=== PATIENT | male | born 1995 | race African-American/Black ===

== ENCOUNTER → 2018-06-26 | Outpatient (CLI) | payer OTHER ==
[2018-06-26 12:44] LABS: HCT 44.7 % (39.0-53.0); HGB 14.6 gm/dL (13.0-17.5); MCH 28.5 pg (25.0-35.0); MCHC 32.6 g/dL (31.0-37.0); MCV 87.3 fL (80.0-100.0); Mean Platelet Volume 7.1; Platelet Count 245 k/uL (150-450); RBC 5.12 m/uL (4.30-5.90); RDW 12.7 % (11.5-15.5); WBC 5.9 k/uL (3.8-10.6)
[2018-06-26 19:37] LABS: Albumin 4.1 g/dL (3.80-4.90); Albumin/Globulin Ratio 3.42 (1.20-2.10); Calcium 9.3 mg/dL (8.7-10.3); Globulin 1.2 g/dL (2.1-3.7); Potassium 3.9 mmol/L (3.5-5.5); Total Bilirubin 0.3 mg/dL (0.2-1.2); Total Protein 5.3 g/dL (6.2-8.2)
== END | disposition home or self-care (01) ==
LOC: LABWHC1 12:03
PROVIDERS: ATTEND Internal Medicine
DX: R41.3 Other amnesia (principal)
CPT/HCPCS: 36415; 80053; 82607; 84439; 84443; 85027

== ENCOUNTER → 2018-07-12 | Outpatient (CLI) | payer OTHER ==
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
== END | disposition home or self-care (01) ==
LOC: RADMRIMAIN 19:46
PROVIDERS: ATTEND Internal Medicine
DX: M51.35 Other intervertebral disc degeneration, thoracolumbar region (principal); M51.24 Other intervertebral disc displacement, thoracic region; M43.8X4 Other specified deforming dorsopathies, thoracic region; R41.3 Other amnesia
CPT/HCPCS: 70551; 72146

== ENCOUNTER 2019-05-17 17:44 | Emergency (ER) | payer OTHER ==
[2019-05-17 17:50] VITALS: TEMP 98.6
--- NOTE | 2019-05-17 18:09 | ED ---
General Adult HPI - General Chief complaint: Psychiatric Symptoms Stated complaint: Mental health Time Seen by Provider: 05/17/19 17:54 Source: patient, police Mode of arrival: ambulatory Limitations: no limitations - History of Present Illness Initial comments: Dictation was produced using [employer] dictation software. please excuse any grammatical, word or spelling errors. Chief Complaint: 24-year-old male brought in by law enforcement for suicidal behavior. History of Present Illness: Patient is a 24-year-old male. His run by law enforcement for suicidal behavior. Patient called 911 threatening them that he will jump off the river. He was seen approximately 20 feet from the site where he was threatening to jump off. Patient denies any homicidal ideation. Denies any medical history. No medical issues at this time. Denies any pain or shortness of breath. Patient states he didn't suicidal the past. The ROS documented in this emergency department record has been reviewed and confirmed by me. Those systems with pertinent positive or negative responses have been documented in the HPI. All other systems are other negative and/or noncontributory. PHYSICAL EXAM: General Impression: Alert and oriented x3, not in acute distress HEENT: Normocephalic atraumatic, extra-ocular movements intact, pupils equal and reactive to light bilaterally, mucous membranes moist. Cardiovascular: Heart regular rate and rhythm, S1&S2 audible, no murmurs, rubs or gallops Chest: Lungs clear to auscultation bilaterally, no rhonchi, no wheeze, no rales Abdomen: Bowel sounds present, abdomen soft, non-tender, non-distended, no organomegaly Musculoskeletal: Pulses present and equal in all extremities, no peripheral otilia ma Motor: no focal deficits noted Neurological: CN II-XII grossly intact, no focal motor or sensory deficits noted Skin: Intact with no visualized rashes Psych: Tangential speech, flat affect ED course: 24-year-old male with suicidal behavior. Signs upon arrival are within acceptable limits. Physical examination is benign. Patient displaying psychotic symptoms. Patient medically cleared for EPS evaluation. - Related Data Home Medications Medication Instructions Recorded Confirmed No Known Home Medications 10/27/14 05/17/19 Allergies Allergy/AdvReac Type Severity Reaction Status Date / Time No Known Allergies Allergy Verified 05/17/19 20:45 Review of Systems ROS Statement: Those systems with pertinent positive or pertinent negative responses have been documented in the HPI. ROS Other: All systems not noted in ROS Statement are negative. Past Medical History Past Medical History: Asthma Additional Past Medical History / Comment(s): BACK PAIN, MIGRAINE, ADD, D EPRESSION, PERSONALITY DISORDER NOS, ANXIETY, History of Any Multi-Drug Resistant Organisms: None Reported Past Surgical History: No Surgical Hx Reported Past Psychological History: ADD/ADHD, Anxiety, Depression, PTSD Smoking Status: Current every day smoker Past Alcohol Use History: None Reported Past Drug Use History: Marijuana General Exam Limitations: no limitations Course Vital Signs 05/17/19 17:47 Temperature 98.6 F Pulse Rate 62 Respiratory 18 Rate Blood Pressure 121/75 O2 Sat by Pulse 98 Oximetry Medical Decision Making - Lab Data Result diagrams: 05/17/19 20:40 05/17/19 20:40 Lab Results 05/17/19 05/17/19 05/17/19 Range/Units 20:40 20:40 20:40 WBC 11.8 H (3.8-10.6) k/uL RBC 4.58 (4.30-5.90) m/uL Hgb 13.3 (13.0-17.5) gm/dL Hct 39.1 (39.0-53.0) % MCV 85.5 (80.0-100.0) fL MCH 29.1 (25.0-35.0) pg MCHC 34.1 (31.0-37.0) g/dL RDW 12.4 (11.5-15.5) % Plt Count 239 (150-450) k/uL Sodium 141 (137-145) mmol/L Potassium 3.6 (3.5-5.1) mmol/L Chloride 107 (98-107) mmol/L Carbon Dioxide 25 (22-30) mmol/L Anion Gap 9 mmol/L BUN 7 L (9-20) mg/dL Creatinine 0.84 (0.66-1.25) mg/dL Est GFR (CKD-EPI)AfAm >90 (>60 ml/min/1.73 sqM) Est GFR (CKD-EPI)NonAf >90 (>60 ml/min/1.73 sqM) Glucose 103 H (74-99) mg/dL Calcium 9.5 (8.4-10.2) mg/dL Total Bilirubin 0.5 (0.2-1.3) mg/dL AST 35 (17-59) U/L ALT 25 (21-72) U/L Alkaline Phosphatase 40 (38-126) U/L Total Protein 6.0 L (6.3-8.2) g/dL Albumin 3.9 (3.5-5.0) g/dL Urine Color Yellow Urine Appearance Cloudy (Clear) Urine pH 6.0 (5.0-8.0) Ur Specific [place] 1.024 (1.001-1.035) Urine Protein 1+ H (Negative) Urine Glucose (UA) Negative (Negative) Urine Ketones Negative (Negative) Urine Blood Negative (Negative) Urine Nitrite Negative (Negative) Urine Bilirubin Negative (Negative) Urine Urobilinogen <2.0 (<2.0) mg/dL Ur Leukocyte Esterase Negative (Negative) Urine WBC 2 (0-5) /hpf Ur Squamous Epith Cells <1 (0-4) /hpf Urine Bacteria Rare H (None) /hpf Hyaline Casts 15 H (0-2) /lpf Urine Mucus Many H (None) /hpf Urine Opiates Screen (NotDetected) Ur Oxycodone Screen (NotDetected) Urine Methadone Screen (NotDetected) Ur Propoxyphene Screen (NotDetected) Ur Barbiturates Screen (NotDetected) U Tricyclic Antidepress (NotDetected) Ur Phencyclidine Scrn (NotDetected) Ur Amphetamines Screen (NotDetected) U Methamphetamines Scrn (NotDetected) U Benzodiazepines Scrn (NotDetected) Urine Cocaine Screen (NotDetected) U Marijuana (THC) Screen (NotDetected) 05/17/19 Range/Units 20:40 WBC (3.8-10.6) k/uL RBC (4.30-5.90) m/uL Hgb (13.0-17.5) gm/dL Hct (39.0-53.0) % MCV (80.0-100.0) fL MCH (25.0-35.0) pg MCHC (31.0-37.0) g/dL RDW (11.5-15.5) % Plt Count (150-450) k/uL Sodium (137-145) mmol/L Potassium (3.5-5.1) mmol/L Chloride (98-107) mmol/L Carbon Dioxide (22-30) mmol/L Anion Gap mmol/L BUN (9-20) mg/dL Creatinine (0.66-1.25) mg/dL Est GFR (CKD-EPI)AfAm (>60 ml/min/1.73 sqM) Est GFR (CKD-EPI)NonAf (>60 ml/min/1.73 sqM) Glucose (74-99) mg/dL Calcium (8.4-10.2) mg/dL Total Bilirubin (0.2-1.3) mg/dL AST (17-59) U/L ALT (21-72) U/L Alkaline Phosphatase (38-126) U/L Total Protein (6.3-8.2) g/dL Albumin (3.5-5.0) g/dL Urine Color Urine Appearance (Clear) Urine pH (5.0-8.0) Ur Specific [place] (1.001-1.035) Urine Protein (Negative) Urine Glucose (UA) (Negative) Urine Ketones (Negative) Urine Blood (Negative) Urine Nitrite (Negative) Urine Bilirubin (Negative) Urine Urobilinogen (<2.0) mg/dL Ur Leukocyte Esterase (Negative) Urine WBC (0-5) /hpf Ur Squamous Epith Cells (0-4) /hpf Urine Bacteria (None) /hpf Hyaline Casts (0-2) /lpf Urine Mucus (None) /hpf Urine Opiates Screen Not Detected (NotDetected) Ur Oxycodone Screen Not Detected (NotDetected) Urine Methadone Screen Not Detected (NotDetected) Ur Propoxyphene Screen Not Detected (NotDetected) Ur Barbiturates Screen Not Detected (NotDetected) U Tricyclic Antidepress Not Detected (NotDetected) Ur Phencyclidine Scrn Not Detected (NotDetected) Ur Amphetamines Screen Not Detected (NotDetected) U Methamphetamines Scrn Not Detected (NotDetected) U Benzodiazepines Scrn Not Detected (NotDetected) Urine Cocaine Screen Not Detected (NotDetected) U Marijuana (THC) Screen Detected H (NotDetected) Disposition Clinical Impression: Suicidal ideation Disposition: TRANSFER TO PSYCH HOSP/UNIT Referrals: None,Stated [Primary Care Provider] - 1-2 days Time of Disposition: 00:38
[2019-05-17] MEDS ORDERED: NICOTINE 21MG/24HR PATCH TRANSDERM STA (20:25)
[2019-05-17 20:51] LABS: HCT 39.1 % (39.0-53.0); HGB 13.3 gm/dL (13.0-17.5); MCH 29.1 pg (25.0-35.0); MCHC 34.1 g/dL (31.0-37.0); MCV 85.5 fL (80.0-100.0); Mean Platelet Volume 6.4; Platelet Count 239 k/uL (150-450); RBC 4.58 m/uL (4.30-5.90); RDW 12.4 % (11.5-15.5); WBC 11.8 k/uL (3.8-10.6)
[2019-05-17 20:55] LABS: Appearance,Urine Cloudy (Clear); Bacteria,Urine Rare /hpf; Bilirubin,Urine Negative (Negative); Blood,Urine Negative (Negative); Color,Urine Yellow; Glucose,Urine (UA) Negative (Negative); Hyaline Casts,Urine 15 /lpf (0-2); Ketones,Urine Negative (Negative); Leukocyte Esterase,Urine Negative (Negative); Mucus,Urine Many /hpf; Nitrite,Urine Negative (Negative); Protein,Urine 1+ (Negative); Specific Gravity,Urine 1.024 (1.001-1.035); Squamous Epithelial Cell,Urine <1 /hpf (0-4); Urobilinogen,Urine <2.0 mg/dL (<2.0); WBC,Urine 2 /hpf (0-5)
[2019-05-17 20:58] LABS: ALT 25 U/L (21-72); AST 35 U/L (17-59); African American GFR (CKD) >90 (>60 ml/min/1.73 sqM); Albumin 3.9 g/dL (3.5-5.0); Alkaline Phosphatase 40 U/L (38-126); Anion Gap 9 mmol/L; Blood Urea Nitrogen 7 mg/dL (9-20); Calcium 9.5 mg/dL (8.4-10.2); Carbon Dioxide 25 mmol/L (22-30); Chloride 107 mmol/L (98-107); Glucose 103 mg/dL (74-99); Potassium 3.6 mmol/L (3.5-5.1); Sodium 141 mmol/L (137-145); Total Bilirubin 0.5 mg/dL (0.2-1.3)
[2019-05-17 21:03] LABS: Amphetamine Screen,Urine Not Detected (NotDetected); Barbiturate Screen,Urine Not Detected (NotDetected); Benzodiazepines Screen,Urine Not Detected (NotDetected); Cocaine Screen,Urine Not Detected (NotDetected); Methadone Screen, Urine Not Detected (NotDetected); Opiate Screen,Urine Not Detected (NotDetected); Oxycodone Screen, Urine Not Detected (NotDetected); Phencyclidine Screen,Urine Not Detected (NotDetected); Tricyclic Antidepressant,Urine Not Detected (NotDetected); Urn Cannabinoid Scrn Detected (NotDetected)
[2019-05-17] MEDS ORDERED: LORazepam 1 MG TAB PO STA (22:19)
[2019-05-18 06:18] VITALS: BP 124/70; PULSE 65; RESP 16
== END 2019-05-18 08:19 ==
LOC: EC 17:44
DX: R45.851 Suicidal ideations (principal); F17.200 Nicotine dependence, unspecified, uncomplicated
CPT/HCPCS: 82075; 36415; 80053; 85027; 81001; 80306; 99285; S4990

== ENCOUNTER 2020-10-23 16:26 | Inpatient (IN) | payer MEDICAID, OTHER ==
[2020-10-23 17:13] LABS: Amorphous Sediment,Urine Rare /hpf; Amphetamine Screen,Urine Not Detected (NotDetected); Appearance,Urine Cloudy (Clear); Bacteria,Urine Rare /hpf; Barbiturate Screen,Urine Not Detected (NotDetected); Benzodiazepines Screen,Urine Not Detected (NotDetected); Bilirubin,Urine Negative (Negative); Blood,Urine Negative (Negative); Cocaine Screen,Urine Not Detected (NotDetected); Color,Urine Yellow; Glucose,Urine (UA) Negative (Negative); Ketones,Urine Negative (Negative); Leukocyte Esterase,Urine Negative (Negative); Methadone Screen, Urine Not Detected (NotDetected); Mucus,Urine Moderate /hpf; Nitrite,Urine Negative (Negative); Opiate Screen,Urine Not Detected (NotDetected); Oxycodone Screen, Urine Not Detected (NotDetected); Phencyclidine Screen,Urine Not Detected (NotDetected); Protein,Urine 1+ (Negative); RBC,Urine <1 /hpf (0-5); Specific Gravity,Urine 1.028 (1.001-1.035); Tricyclic Antidepressant,Urine Not Detected (NotDetected); Urn Cannabinoid Scrn Detected (NotDetected); WBC,Urine 3 /hpf (0-5)
--- NOTE | 2020-10-23 17:18 | ED ---
Psych HPI - General Chief Complaint: Psychiatric Symptoms Stated Complaint: Petition Time Seen by Provider: 10/23/20 16:45 Source: patient, police - History of Present Illness Initial Comments: Patient is a 25-year-old male past medical history of depression, ADD who presents emergency department accompanied by police. Patient was out with his significant other shopping when they got into an argument. He became extremely distraught about this. He was found to be acting erratically inside of the furniture store where police was called. community resource officer states that he picked the patient up in front [employer]. The patient had 2 warrants out for his arrest. When he was told he was going to be arrested he began saying that he was suicidal. He began striking his head on the partition in the police car. Patient admits to depression. States he is homeless. Does admit to previous history of depression and was placed on Zoloft after being hospitalized however denies that he ever took it. Patient normally does not see a counselor. Denies homicidal ideations. Denies drug use. No alcohol intake today. 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 ROS Other: All systems not noted in ROS Statement are negative. Past Medical History Past Medical History: Asthma Additional Past Medical History / Comment(s): BACK PAIN, MIGRAINE, ADD, DEPRESSION, PERSONALITY DISORDER NOS, ANXIETY, History of Any Multi-Drug Resistant Organisms: None Reported Past Surgical History: No Surgical Hx Reported Past Psychological History: ADD/ADHD, Anxiety, Depression, PTSD Past Alcohol Use History: None Reported Past Drug Use History: Marijuana Course Vital Signs 10/23/20 16:43 Temperature 98.7 F Pulse Rate 98 Respiratory 18 Rate Blood Pressure 130/84 O2 Sat by Pulse 98 Oximetry Medical Decision Making - Medical Decision Making Upon arrival patient was placed into room 13. He is extremely anxious about evaluation. Patient does cooperate and provide full history. He has notable abrasions to the top of his head. I did recommend CT of his brain for which the patient did agree to. He denies any additional injuries. Patient provided urine sample. Blood alcohol test is negative. Results are discussed with the patient. We are currently waiting EPS evaluation at this time While patient is awaiting EPS evaluation he does eloped from the emergency department. We are unable to stop him as he ran out the ambulance bay doors. We did call police and they do bring him back into the emergency room and. He arrives back with a superficial laceration to his left second toe. Patient also has abrasions to his groin. The areas are dressed with bacitracin and gauze. Patients tetanus is updated. He is evaluated by EPS and they do admit the pa deon to 3 w - Lab Data Lab Results 10/23/20 10/23/20 10/23/20 Range/Units 16:52 16:55 16:55 Urine Color Yellow Urine Appearance Cloudy (Clear) Urine pH 7.0 (5.0-8.0) Ur Specific [place] 1.028 (1.001-1.035) Urine Protein 1+ H (Negative) Urine Glucose (UA) Negative (Negative) Urine Ketones Negative (Negative) Urine Blood Negative (Negative) Urine Nitrite Negative (Negative) Urine Bilirubin Negative (Negative) Urine Urobilinogen 2.0 (<2.0) mg/dL Ur Leukocyte Esterase Negative (Negative) Urine RBC <1 (0-5) /hpf Urine WBC 3 (0-5) /hpf Amorphous Sediment Rare H (None) /hpf Urine Bacteria Rare H (None) /hpf Urine Mucus Moderate H (None) /hpf Urine Opiates Screen Not Detected (NotDetected) Ur Oxycodone Screen Not Detected (NotDetected) Urine Methadone Screen Not Detected (NotDetected) Ur Propoxyphene Screen Not Detected (NotDetected) Ur Barbiturates Screen Not Detected (NotDetected) U Tricyclic Antidepress Not Detected (NotDetected) Ur Phencyclidine Scrn Not Detected (NotDetected) Ur Amphetamines Screen Not Detected (NotDetected) U Methamphetamines Scrn Not Detected (NotDetected) U Benzodiazepines Scrn Not Detected (NotDetected) Urine Cocaine Screen Not Detected (NotDetected) U Marijuana (THC) Screen Detected H (NotDetected) Coronavirus (PCR) Not Detected (Not Detectd) Disposition Disposition: ADMITTED IP TO THIS HOSP Condition: Fair
--- NOTE | 2020-10-23 17:30 | CT ---
EXAMINATION TYPE: CT brain wo con DATE OF EXAM: 10/23/2020 COMPARISON: February 04, 2014 HISTORY: head injury. pt was banging head on police car partitiion CT DLP: 1114.4 mGycm Automated exposure control for dose reduction was used. Ventricles have normal size. There is no mass effect nor midline shift. There is no sign of intracran ial hemorrhage. Calvarium is intact. Skull base is intact. There is normal aeration of the mastoid si nuses. There is no evidence of cerebral edema. IMPRESSION: Negative unenhanced head CT scan. There is clearing of the soft tissue swelling anterior to the left maxilla compared to old exam.
[2020-10-23] MEDS ORDERED: BACITRACIN OINT 1 EACH PACKET TOPICAL ONE (18:40)
[2020-10-23] MEDS ORDERED: DIPH,PERTUS(ACELL)TETVAC-LF 0.5 ML VIAL IM ONE (18:40)
[2020-10-23] MEDS ORDERED: MAG HYDROX/AL HYDROX/SIMETH 30 ML CUP PO PRN (19:11)
[2020-10-23] MEDS ORDERED: MAGNESIUM HYDROXIDE 2,400 MG/10 ML CUP PO PRN (19:11)
[2020-10-23] MEDS ORDERED: ACETAMINOPHEN TAB 325 MG TAB PO PRN (19:11)
[2020-10-23] MEDS ORDERED: LORazepam 2 MG/ML INJ IM PRN (19:14)
[2020-10-23] MEDS ORDERED: HALOPERIDOL LACTATE 5 MG/ML 1 ML VIAL IM PRN (19:16)
[2020-10-23] MEDS: LORazepam 1 MG TAB PO PRN (20:48)
--- NOTE | 2020-10-24 | P.PN ---
Progress Note - Text Progress Note Date: 10/23/20 25-year-old male past medical history of depression, was brought to the hospital by the police for erratic behavior. Reportedly he got into an argument with his significant other in a furniture store and ran away . The police found him and noted he had warrants for his arrest for child support and not showing up in court. The police petitioned him. When he was told he was going to be arrested he began saying that he was suicidal. He was highly agitated in the ER. He ran away from ER, had tried to climb over a fence and gave himself some abrasions to bilater thighs. Reports being suicidal and just wanted to end it all. Mental Status Exam: General Appearance: Patient appears stated age in Fair hygiene and grooming. Behavior: Irritable Speech: Spontaneous with normal tone, rate, and volume. Mood/Affect: Mood is sad. Affect is constricted. Suicidality/Homicidality: He does endorse suicidal ideation but denies any homicidal ideation, intention, and/or plan. Perceptions: Patient denies any visual hallucinations or auditory hallucinations today. Though content/process: There is no evidence of any delusional thought content Judgment and insight: impaired Assessment: Major depressive disorder, recurrent, severe Plan: Will start him on zoloft 25mg po daily and will increase the dose as he responds. -When necessary Ativan and Haldol for agitation/aggression. -NRT - nicotine patch -SW on board for discharge planning.
--- NOTE | 2020-10-24 03:02 | P.PN ---
Progress Note - Text Progress Note Date: 10/23/20 unable to evaluate patient at this time ,patient was medicated due to eratic behavior , and currently sedated
[2020-10-24 07:23] LABS: Basophils # (A) 0.1 k/uL (0-0.2); Basophils % (A) 1 %; Eosinophils # (A) 0.1 k/uL (0-0.7); Eosinophils % (A) 1 %; HCT 45.8 % (39.0-53.0); HGB 15.2 gm/dL (13.0-17.5); Lymphocytes # (A) 1.8 k/uL (1.0-4.8); Lymphocytes % (A) 18 %; MCH 29.2 pg (25.0-35.0); MCHC 33.2 g/dL (31.0-37.0); MCV 87.7 fL (80.0-100.0); Mean Platelet Volume 7.1; Monocytes # (A) 0.6 k/uL (0-1.0); Monocytes % (A) 6 %; Neutrophils # (A) 7.6 k/uL (1.3-7.7); Neutrophils % (A) 73 %; Platelet Count 263 k/uL (150-450); RBC 5.22 m/uL (4.30-5.90); RDW 12.5 % (11.5-15.5); WBC 10.3 k/uL (3.8-10.6)
[2020-10-24 07:36] LABS: ALT 13 U/L (4-49); AST 29 U/L (17-59); African American GFR (CKD) >90 (>60 ml/min/1.73 sqM); Albumin 4.9 g/dL (3.5-5.0); Alkaline Phosphatase 59 U/L (38-126); Anion Gap 9 mmol/L; Blood Urea Nitrogen 12 mg/dL (9-20); Calcium 10.1 mg/dL (8.4-10.2); Carbon Dioxide 26 mmol/L (22-30); Chloride 105 mmol/L (98-107); Cholesterol 156 mg/dL (<200); Glucose 90 mg/dL (74-99); HDL Cholesterol 47 mg/dL (40-60); LDL Cholesterol,Calculated 101 mg/dL (0-99); Non-African American GFR(CKD) >90 (>60 ml/min/1.73 sqM); Potassium 4.5 mmol/L (3.5-5.1); Sodium 140 mmol/L (137-145); Total Bilirubin 1.3 mg/dL (0.2-1.3); Total Protein 7.6 g/dL (6.3-8.2); Triglycerides 41 mg/dL (<150)
[2020-10-24] MEDS: LORazepam 1 MG TAB PO PRN (08:15)
[2020-10-24] MEDS ORDERED: NICOTINE 14MG/24HR PATCH TRANSDERM SCH (09:00)
--- NOTE | 2020-10-24 12:24 | P.HP ---
Psychiatric H&P - . H&P Date: 10/24/20 History & Physical: Allergies Allergy/AdvReac Type Severity Reaction Status Date / Time No Known Allergies Allergy Verified 10/24/20 04:01 Vital Signs Temp 97.8 F 10/24/20 06:49 Pulse 110 H 10/24/20 08:17 Resp 18 10/24/20 06:49 BP 120/76 10/24/20 08:17 Pulse Ox 97 10/23/20 19:56 Intake & Output 10/23/20 10/24/20 10/24/20 18:59 06:59 18:59 Weight 68.039 kg 68.9 kg 64.9 kg Laboratory Last Values WBC 10.3 k/uL (3.8-10.6) 10/24/20 06:22 RBC 5.22 m/uL (4.30-5.90) 10/24/20 06:22 Hgb 15.2 gm/dL (13.0-17.5) 10/24/20 06:22 Hct 45.8 % (39.0-53.0) 10/24/20 06:22 MCV 87.7 fL (80.0-100.0) 10/24/20 06:22 MCH 29.2 pg (25.0-35.0) 10/24/20 06:22 MCHC 33.2 g/dL (31.0-37.0) 10/24/20 06:22 RDW 12.5 % (11.5-15.5) 10/24/20 06:22 Plt Count 263 k/uL (150-450) 10/24/20 06:22 MPV 7.1 10/24/20 06:22 Neutrophils % 73 % 10/24/20 06:22 Lymphocytes % 18 % 10/24/20 06:22 Monocytes % 6 % 10/24/20 06:22 Eosinophils % 1 % 10/24/20 06:22 Basophils % 1 % 10/24/20 06:22 Neutrophils # 7.6 k/uL (1.3-7.7) 10/24/20 06:22 Lymphocytes # 1.8 k/uL (1.0-4.8) 10/24/20 06:22 Monocytes # 0.6 k/uL (0-1.0) 10/24/20 06:22 Eosinophils # 0.1 k/uL (0-0.7) 10/24/20 06:22 Basophils # 0.1 k/uL (0-0.2) 10/24/20 06:22 Sodium 140 mmol/L (137-145) 10/24/20 06:22 Potassium 4.5 mmol/L (3.5-5.1) 10/24/20 06:22 Chloride 105 mmol/L (98-107) 10/24/20 06:22 Carbon Dioxide 26 mmol/L (22-30) 10/24/20 06:22 Anion Gap 9 mmol/L 10/24/20 06:22 BUN 12 mg/dL (9-20) 10/24/20 06:22 Creatinine 1.00 mg/dL (0.66-1.25) 10/24/20 06:22 Est GFR (CKD-EPI)AfAm >90 (>60 ml/min/1.73 sqM) 10/24/20 06:22 Est GFR (CKD-EPI)NonAf >90 (>60 ml/min/1.73 sqM) 10/24/20 06:22 Glucose 90 mg/dL (74-99) 10/24/20 06:22 Calcium 10.1 mg/dL (8.4-10.2) 10/24/20 06:22 Total Bilirubin 1.3 mg/dL (0.2-1.3) 10/24/20 06:22 AST 29 U/L (17-59) 10/24/20 06:22 ALT 13 U/L (4-49) 10/24/20 06:22 Alkaline Phosphatase 59 U/L (38-126) 10/24/20 06:22 Total Protein 7.6 g/dL (6.3-8.2) 10/24/20 06:22 Albumin 4.9 g/dL (3.5-5.0) 10/24/20 06:22 Triglycerides 41 mg/dL (<150) 10/24/20 06:22 Cholesterol 156 mg/dL (<200) 10/24/20 06:22 LDL Cholesterol, Calc 101 mg/dL (0-99) H 10/24/20 06:22 HDL Cholesterol 47 mg/dL (40-60) 10/24/20 06:22 TSH 0.900 mIU/L (0.465-4.680) 10/24/20 06:22 Urine Color Yellow 10/23/20 16:55 Urine Appearance Cloudy (Clear) 10/23/20 16:55 Urine pH 7.0 (5.0-8.0) 10/23/20 16:55 Ur Specific [place] 1.028 (1.001-1.035) 10/23/20 16:55 Urine Protein 1+ (Negative) H 10/23/20 16:55 Urine Glucose (UA) Negative (Negative) 10/23/20 16:55 Urine Ketones Negative (Negative) 10/23/20 16:55 Urine Blood Negative (Negative) 10/23/20 16:55 Urine Nitrite Negative (Negative) 10/23/20 16:55 Urine Bilirubin Negative (Negative) 10/23/20 16:55 Urine Urobilinogen 2.0 mg/dL (<2.0) 10/23/20 16:55 Ur Leukocyte Esterase Negative (Negative) 10/23/20 16:55 Urine RBC <1 /hpf (0-5) 10/23/20 16:55 Urine WBC 3 /hpf (0-5) 10/23/20 16:55 Amorphous Sediment Rare /hpf (None) H 10/23/20 16:55 Urine Bacteria Rare /hpf (None) H 10/23/20 16:55 Urine Mucus Moderate /hpf (None) H 10/23/20 16:55 Urine Opiates Screen Not Detected (NotDetected) 10/23/20 16:55 Ur Oxycodone Screen Not Detected (NotDetected) 10/23/20 16:55 Urine Methadone Screen Not Detected (NotDetected) 10/23/20 16:55 Ur Propoxyphene Screen Not Detected (NotDetected) 10/23/20 16:55 Ur Barbiturates Screen Not Detected (NotDetected) 10/23/20 16:55 U Tricyclic Antidepress Not Detected (NotDetected) 10/23/20 16:55 Ur Phencyclidine Scrn Not Detected (NotDetected) 10/23/20 16:55 Ur Amphetamines Screen Not Detected (NotDetected) 10/23/20 16:55 U Methamphetamines Scrn Not Detected (NotDetected) 10/23/20 16:55 U Benzodiazepines Scrn Not Detected (NotDetected) 10/23/20 16:55 Urine Cocaine Screen Not Detected (NotDetected) 10/23/20 16:55 U Marijuana (THC) Screen Detected (NotDetected) H 10/23/20 16:55 Coronavirus (PCR) Not Detected (Not Detectd) 10/23/20 16:52 10/24/20 12:21 Chief complaint " They arrested me , i snapped, was hitting my head in the police car" History of presenting illness Patient was petitioned by police which reads as follows Nancy moreno was initially under arrest for outstanding warrants. While enroute to the prison, nancy stated he wanted to kill himself and proceded to repeatedly strike his head on the police partition in the back of patrol car. Patient currently reports feeling very scared and terrified about going to prison. He claims to have been in prison before and says he has night dangelo and flash backs of those memories. He reports feeling very sad and anxious. 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 He was very tearful during interview, but denies current suicidal or homicidal ideations. He reports suicidal ideations in the ER. He claims to have not followed up with [facility] and hasnt been taking any medications, but self medicates with Marijuana. For most of the questions he responds with " I dont know " . He states his mother and girl friend knows about his treatments and medications. Jorge Earl is his mother( [phone]) and Rene ([phone]) is his girl friend for eight years and claims having 6 year old child out of that relation ship. After getting into an argument with his girlfriend, he walked away from her and went into various stores trying to call his mother to come and pick him up. As he was yelling over the phone in the store police were called by the staff member at the store. Patient is currently angry, upset about why he has to pay child support when he had been with his child all along. He is currently delusional, paranoid and persecutory delusions. He believes there is conspiracy against him and states he is being cattled, morgan mailed for money. He says government is trying to harvest money out of him. He stated his stimulus check is being taken away by the court system. He says he owes 6000 dollars in child support and has warrant for mandujano condition violation. He says his original charges might have been domestic violence(doesnt remeber the date of his charges ) and states court is following him since then. Past psychiatric history Patient claims to have received counselling at the age of 3, after his dad . Since then he reports to have received various medications for ADHD. He claims to have been treated with adderal, vivan, ritalin etc. He claims to have received anger management. He reports multiple psychiatric hospitalizations and reports to have diagnosed with depression. He claims most of his hospitalizations are due to being suicidal. He does not remember the details of his hospitalizations and the treatments. Most recently he claims ot have been prescribed zoloft but he never picked it up. Substance use history Reports history of marijuana from the age of 9. He says he used it initially to get high and later on he started liking the taste of it and continued. He reports smoking one blunt every hour. Reports occasional use of alcohol. No rehab treatment. Legal problems See HPI. Family psychiatric treatment history none reported Medical history Asthma, history of multiple head injuries, back pain Social history Born in [place], [place]. Raised by mother. He stated his mother took good care of him. Denies history of abuse. He has two sisters. He thinks he might have completed 11 th grade education. He reports to have attended special education for reasons unknown to him. He reports to have worked few jobs at [employer]. He says he lives with his girfriend and has 6 year old child out of that relationship. Mental status exam 25 year old male, appeared his stated age in fair grooming and hygiene. No psychomotor agitation or retardation noted. His speech and thought process are coherent and goal directed. His mood is reported as sad and affect tearful. He stated he doesn't trust any one any more and has paranoid, persecutory delusions of conspiracy against him. He reports one incident of hearing God voice telling him not to drink water . He reports occasaional visual halluciantions. He denies current suicidal or homicidal ideations. He is alert and oriented x4. Diagnosis Major depression recurrent, sever with psychotic features Cannabis abuse rule out substance induced psychosis Rule out PTSD Plan 25-year-old male admitted through emergency department for suicidal ideations. He signed voluntary treatment consent. consult medicine for H&P psychosocial evaluation. After discussing benefits and risks of medications he has agreed to take zoloft and zyprex for depression, anxiety and paranoid delusions. Will start him on zoloft 25mg po qday and dose will titrated as tolerated and responsiveness. Will start him on zyprexa 2.5mg po qhs for paranoid delsuions. Monitor for symptoms To receive milieu therapy group therapy individual therapy occupational therapy recreational therapy and medication education. Discharge with outpatient follow-up. Social work to assist with discharge. Referral to out patient substance use program Treatment goals: Medication stabilization of depression Insight improvement and encourage treatment adherence. development of better coping skills 10/24/20 12:55
[2020-10-24 14:00] LABS: Hemoglobin A1C 5.3 % (4.0-6.0)
[2020-10-24] MEDS: SERTRALINE 25 MG TAB PO SCH (15:12)
[2020-10-24] MEDS: diphenhydrAMINE 25 MG CAP PO SCH (21:14)
[2020-10-25] MEDS: LORazepam 1 MG TAB PO PRN (01:02)
[2020-10-25] MEDS: SERTRALINE 25 MG TAB PO SCH (08:29)
[2020-10-25] MEDS: NICOTINE 21MG/24HR PATCH TRANSDERM SCH (09:00)
[2020-10-25] MEDS ORDERED: SERTRALINE 25 MG TAB PO STA (09:52)
--- NOTE | 2020-10-25 11:03 | P.PN ---
Progress Note - Text Progress Note Date: 10/25/20 Interval History: Patient was seen resting in bed and was directable and agreeable to speak with health technical writer in the office. Patient reports that he has been feeling increasingly emotional and sad. The crying. He is upset with his whole situation and finds it unfair that he has to go to half-way. He reports that he just wants to go home and see his children. He is currently not reporting any suicidal or homicidal ideation, intention, and/or plan. He appears to be somewhat future oriented stating that he will like to go to half-way and just get this "over and done with psych and go home and see my kids." He does admit to racing thoughts, elevated anxiety, and difficulty sleeping. He is agreeable at this time to take the medications to address his impulsivity, mood swings, and elevated anxiety. He does not report any auditory or visualizations. He denies any paranoia or other delusions. He has been adherent with his medications and not reporting any significant side effects at this time. He currently endorses low appetite. Mental Status Exam: General Appearance: Patient appears to be stated age is alert, directable, and cooperative. Thin build. He wears glasses. Behavior: Patient is calmly seated without any agitated behavior. Psychomotor activity is slightly elevated. Speech: Patient's speech is fluent and nonpressured. Spontaneous, hyperverbal, slightly rapid in rate but is interruptible. Mood/Affect: Mood is very upset, affect is congruent and appropriately tearful. Suicidality/Homicidality: Patient denies having any suicidal or homicidal ideation intent or plan. Perceptions: Patient denies any visual hallucinations and denies any auditory negrete llucinations Though content/process: There is no evidence of any delusional thought content and thought process is linear and goal-directed. Memory and concentration: AOX3, grossly intact for the purposes of this session Judgment and insight: Improving mildly Assessment Major depressive disorder, recurrent, severe Cannabis abuse Rule out PTSD Nicotine dependence Plan: -Patient continues to meet criteria for inpatient psychiatric admission for symptom stabilization and safety. Patient has signed adult voluntary form. -Medications: Increase Zyprexa to 5 mg by mouth daily at bedtime for mood stabilization Increase Zoloft 50 mg by mouth daily for depression/anxiety Continue Benadryl 25 mg by mouth at bedtime for insomnia -When necessary Ativan and Haldol for agitation/aggression. -NRT - nicotine patch -SW on board for discharge planning. Encouraged the patient to participate in milieu.
--- NOTE | 2020-10-25 15:17 | P.CONS ---
History of Present Illness - Reason for Consult Consult date: 10/25/20 - History of Present Illness History of presenting illness: Patient is a 25-year-old male with a past medical history of childhood asthma, nicotine dependence and previous head injury/concussion. He is currently admitted to inpatient mental health unit secondary to self injurious behaviors by banging his head and reports of suicidal ideations. We have been consulted to follow along with primary admitting psychiatric team for continued medical management. Review of systems: Pertinent positives and negatives as discussed in HPI, a complete review of systems was performed and all other systems are negative. Physical exam: General: non toxic, no distress, appears at stated age Derm: warm, dry Head: atraumatic, normocephalic, symmetric Eyes: EOMI, no lid lag, anicteric sclera Mouth: no lip lesion, mucus membranes moist Cardiovascular: S1S2 reg, no murmur, positive posterior tibial pulse bilateral, Lungs: CTA bilateral, no rhonchi, no rales , no accessory muscle use Abdominal: soft, nontender to palpation, no guarding, no appreciable organo megaly Ext: no gross muscle atrophy, no edema, no contractures Neuro: CN II-XI grossly intact, no focal neuro deficits Psych: Alert, oriented, appropriate affect Assessment and Plan of care: Self injurious behaviors and suicidal ideation -Management per primary admitting psychiatric team. -Suicide precautions. Childhood asthma -Controlled, patient denies use of home inhalers or nebulizers. -Patient comfort on the importance of smoking cessation and risks of continued use. Nicotine dependence -Patient to continue to receive encouragement and education on the importance of smoking cessation and risks of continued use up to and including . -Nicotine patch Thank you for allowing us to participate in the care of this pleasant patient. Do not hesitate to contact us with questions. We will follow on an as-needed basis, RN to notify provider with needs. Someone can be reached from the [facility] hospitalist group all hours of the day at [phone] or via [employer]. Past Medical History Past Medical History: Asthma Additional Past Medical History / Comment(s): BACK PAIN, MIGRAINE, ADD, DEPRESSION, PERSONALITY DISORDER NOS, ANXIETY, History of Any Multi-Drug Resistant Organisms: None Reported Past Surgical History: No Surgical Hx Reported Past Psychological History: ADD/ADHD, Anxiety, Depression, PTSD Past Alcohol Use History: None Reported Past Drug Use History: Marijuana Medications and Allergies Home Medications Medication Instructions Recorded Confirmed Type Sertraline HCl [Zoloft] See Taper PO DIRECTED 10/23/20 10/23/20 History Allergies Allergy/AdvReac Type Severity Reaction Status Date / Time No Known Allergies Allergy Verified 10/24/20 04:01 Physical Exam Vitals: Vital Signs Temp Pulse Resp BP 10/25/20 01:02 97.8 F 98 18 128/79 Results CBC & Chem 7: 10/24/20 06:22 10/24/20 06:22
[2020-10-25] MEDS ORDERED: OLANZapine 2.5 MG TAB PO SCH (20:00)
[2020-10-25] MEDS ORDERED: OLANZapine 5 MG TAB PO SCH (20:00)
[2020-10-25] MEDS: diphenhydrAMINE 25 MG CAP PO SCH (20:52)
[2020-10-26 06:58] VITALS: BP 113/67; PULSE 51; RESP 17; TEMP 98.3
[2020-10-26] MEDS: NICOTINE 21MG/24HR PATCH TRANSDERM SCH (08:52)
[2020-10-26] MEDS ORDERED: SERTRALINE 50 MG TAB PO SCH (09:00)
--- NOTE | 2020-10-26 10:25 | P.PN ---
Progress Note - Text Progress Note Date: 10/26/20 Interval History: Patient was seen in the hallways and was directable and agreeable to speak with play writer in the office. The patient reports that he is feeling slightly better today. He states that he has been less emotional but continues to feel sad regarding his current situation. He understands that he will have to go to long term after this admission. He is currently not reporting any suicidal or homicidal ideation, intention, and/or plan. He does express remorse for his actions and states that he knows that he will be emotional but feels like he would not hurt himself or bang his head against the window this time. He does report some difficulty sleeping. He denies any auditory or visual hallucinations. He denies any paranoia or other delusions. He is reports a low appetite. He has been adherent with his medications and is not reporting any significant side effects at this time. Mental Status Exam: General Appearance: Patient appears to be stated age is alert, directable, and cooperative. Thin build. He wears glasses. Behavior: Patient is calmly seated without any agitated behavior. Normal psychomotor activity. Speech: Patient's speech is fluent and nonpressured. Spontaneous, less hyperverbal, with normal tone and volume. Mood/Affect: Mood is "feeling better." affect is congruent and constricted. Suicidality/Homicidality: Patient denies having any suicidal or homicidal ideation intent or plan. Perceptions: Patient denies any visual hallucinations and denies any auditory hallucinations Though content/process: There is no evidence of any delusional thought content and thought process is linear and goal-directed. Memory and concentration: AOX3, grossly intact for the purposes of this session Judgment and insight: Improving mildly Assessment Major depressive disorder, recurrent, severe Cannabis abuse Rule out PTSD Nicotine dependence Plan: -Patient continues to meet criteria for inpatient psychiatric admission for symptom stabilization and safety. Patient has signed adult voluntary form. -Medications: Increase Zyprexa to 10 mg by mouth daily at bedtime for mood stabilization Increase Zoloft to 75 mg by mouth daily for depression/anxiety Continue Benadryl 25 mg by mouth at bedtime for insomnia -When necessary Ativan and Haldol for agitation/aggression. -NRT - nicotine patch -SW on board for discharge planning. Encouraged the patient to participate in milieu.
[2020-10-26] MEDS ORDERED: OLANZapine 10 MG TAB PO SCH (21:00)
[2020-10-26] MEDS ORDERED: MELATONIN 5 MG TABLET PO SCH (21:00)
[2020-10-26] MEDS ORDERED: diphenhydrAMINE 25 MG CAP PO SCH (21:00)
[2020-10-27] MEDS: NICOTINE 21MG/24HR PATCH TRANSDERM SCH (08:45)
[2020-10-27] MEDS ORDERED: SERTRALINE 25 MG TAB PO SCH (09:00)
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
[2020-10-27] MEDS: LORazepam 1 MG TAB PO PRN (14:04)
[2020-10-27] MEDS ORDERED: MELATONIN 5 MG TABLET PO SCH (21:00)
[2020-10-27] MEDS ORDERED: OLANZapine 5 MG TAB PO SCH (21:00)
== END 2020-10-27 14:15 | DRG 885 ==
LOC: EC 16:26 → 3MHU 19:00
PROVIDERS: ADMIT Psychiatry & Neurology Psychiatry; ATTEND Psychiatry & Neurology Psychiatry
DX: F33.2 Major depressive disorder, recurrent severe without psychotic features (principal); R45.851 Suicidal ideations; F12.10 Cannabis abuse, uncomplicated; F17.200 Nicotine dependence, unspecified, uncomplicated; F22 Delusional disorders; F43.10 Post-traumatic stress disorder, unspecified; F60.9 Personality disorder, unspecified; G47.00 Insomnia, unspecified; J45.909 Unspecified asthma, uncomplicated; S00.01XA Abrasion of scalp, initial encounter; S91.115A Laceration without foreign body of left lesser toe(s) without damage to nail, initial encounter; Z59.0 Homelessness; Z65.3 Problems related to other legal circumstances; Z79.899 Other long term (current) drug therapy; Z87.09 Personal history of other diseases of the respiratory system; Z87.828 Personal history of other (healed) physical injury and trauma; Z20.822 Contact with and (suspected) exposure to COVID-19
CPT/HCPCS: 70450; 80053; 80061; 80306; 81001; 82075; 83036; 84443; 85025; 87635; 90715; 96374; 99285

== ENCOUNTER 2022-02-24 20:39 | Emergency (ER) | payer OTHER ==
[2022-02-24 20:58] VITALS: RESP 16; TEMP 98.5
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
--- NOTE | 2022-02-24 21:55 | XR ---
EXAMINATION TYPE: XR humerus LT DATE OF EXAM: 02/24/2022 COMPARISON: NONE HISTORY: Pain TECHNIQUE: 2 views FINDINGS: Shoulder joint and elbow joint appear intact. No evidence of humerus fracture. Soft tissues appear normal. IMPRESSION: Negative left humerus exam
--- NOTE | 2022-02-24 21:56 | XR ---
EXAMINATION TYPE: XR shoulder complete LT DATE OF EXAM: 02/24/2022 COMPARISON: NONE HISTORY: Pain. Trauma TECHNIQUE: 3 views FINDINGS: Shoulder joint is intact. There is no fracture nor dislocation. Glenohumeral joint is anato carly IMPRESSION: Negative left shoulder exam. No fracture.
--- NOTE | 2022-02-24 21:57 | XR ---
EXAMINATION TYPE: XR elbow complete LT DATE OF EXAM: 02/24/2022 COMPARISON: NONE HISTORY: Pain TECHNIQUE: 3 views FINDINGS: There is no fracture nor dislocation. Joint spaces are normal. No sign of elbow joint effus ion. IMPRESSION: Negative left elbow exam
[2022-02-24 22:34] LABS: Amphetamine Screen,Urine Not Detected (NotDetected); Barbiturate Screen,Urine Not Detected (NotDetected); Benzodiazepines Screen,Urine Not Detected (NotDetected); Cocaine Screen,Urine Not Detected (NotDetected); Methadone Screen, Urine Not Detected (NotDetected); Opiate Screen,Urine Not Detected (NotDetected); Oxycodone Screen, Urine Not Detected (NotDetected); Phencyclidine Screen,Urine Not Detected (NotDetected); Tricyclic Antidepressant,Urine Not Detected (NotDetected); Urn Cannabinoid Scrn Detected (NotDetected)
[2022-02-25 00:10] VITALS: BP 134/82; PULSE 80
== END 2022-02-25 00:10 | disposition home or self-care (01) ==
LOC: EC 20:39
DX: Z04.6 Encounter for general psychiatric examination, requested by authority (principal); T76.11XA Adult physical abuse, suspected, initial encounter; J45.909 Unspecified asthma, uncomplicated; F17.200 Nicotine dependence, unspecified, uncomplicated
CPT/HCPCS: 80306; 82075

== ENCOUNTER 2023-02-15 21:18 | Emergency (ER) | payer OTHER ==
[2023-02-15 22:03] VITALS: RESP 18
[2023-02-15] MEDS ORDERED: SODIUM CHLORIDE 0.9% 1,000 ML IV STA (22:12)
[2023-02-15] MEDS ORDERED: ONDANSETRON 4 MG/2 ML VIAL IVP STA (22:12)
[2023-02-15] MEDS ORDERED: KETOROLAC 15 MG/ML 1 ML VIAL IVP STA (22:17)
[2023-02-15 22:40] LABS: Basophils # (A) 0.1 k/uL (0-0.2); Basophils % (A) 1 %; Eosinophils # (A) 0.2 k/uL (0-0.7); Eosinophils % (A) 3 %; HGB 14.2 gm/dL (13.0-17.5); Lymphocytes % (A) 27 %; MCH 29.8 pg (25.0-35.0); MCHC 33.7 g/dL (31.0-37.0); MCV 88.3 fL (80.0-100.0); Mean Platelet Volume 7.5; Monocytes # (A) 0.4 k/uL (0-1.0); Monocytes % (A) 6 %; Neutrophils # (A) 4.6 k/uL (1.3-7.7); Neutrophils % (A) 61 %; Platelet Count 210 k/uL (150-450); RBC 4.75 m/uL (4.30-5.90); RDW 12.4 % (11.5-15.5); WBC 7.5 k/uL (3.8-10.6)
[2023-02-15 22:47] LABS: ALT 18 U/L (4-49); AST 22 U/L (17-59); African American GFR (CKD) >90 (>60 ml/min/1.73 sqM); Alkaline Phosphatase 49 U/L (38-126); Anion Gap 7 mmol/L; Blood Urea Nitrogen 12 mg/dL (9-20); Calcium 9.1 mg/dL (8.4-10.2); Carbon Dioxide 26 mmol/L (22-30); Chloride 107 mmol/L (98-107); Glucose 107 mg/dL (74-99); Lipase 110 U/L (23-300); Non-African American GFR(CKD) >90 (>60 ml/min/1.73 sqM); Potassium 3.9 mmol/L (3.5-5.1); Sodium 140 mmol/L (137-145); Total Bilirubin 0.5 mg/dL (0.2-1.3); Total Protein 6.2 g/dL (6.3-8.2)
--- NOTE | 2023-02-15 22:58 | ED ---
Abdominal Pain HPI - General Chief Complaint: Abdominal Pain Stated Complaint: Abd Pain, Dizziness Time Seen by Provider: 02/15/23 22:11 Source: patient Mode of arrival: ambulatory Limitations: no limitations - History of Present Illness Initial Comments: Patient is a 27-year-old male who presents the emergency department for abdominal pain. Patient reports very mild abdominal pain in his upper abdomen today with nausea. He had one episode of vomiting, nonbloody. Patient states he typically feels lightheaded when standing up and has experienced increased lightheadedness with standing today. He denies history of syncope, arrhythmia. He denies chest pain and shortness of breath. No upper respiratory symptoms. Denies fever and chills. Denies urinary symptoms, constipation, blood in stool. Does admit to one large episode of diarrhea this afternoon, watery, nonbloody. - Related Data Previous Rx's Medication Instructions Recorded Melatonin 10 mg PO HS 30 Days tablet 10/27/20 Nicotine 21Mg/24Hr Patch [Habitrol] 1 patch TRANSDERM DAILY 30 Days 10/27/20 patch OLANZapine [ZyPREXA] 15 mg PO HS 30 Days tab 10/27/20 Sertraline [Zoloft] 75 mg PO DAILY 30 Days tab 10/27/20 diphenhydrAMINE [Benadryl] 50 mg PO HS 30 Days cap 10/27/20 Ondansetron Odt [Zofran Odt] 4 mg PO Q8HR PRN #10 tab 02/15/23 Allergies Allergy/AdvReac Type Severity Reaction Status Date / Time No Known Allergies Allergy Verified 02/15/23 22:03 Review of Systems ROS Statement: Those systems with pertinent positive or pertinent negative responses have been documented in the HPI. ROS Other: All systems not noted in ROS Statement are negative. Past Medical History Past Medical History: Asthma Additional Past Medical History / Comment(s): BACK PAIN, MIGRAINE, ADD, DEPRESSION, PERSONALITY DISORDER NOS, ANXIETY, History of Any Multi-Drug Resistant Organisms: None Reported Past Surgical History: No Surgical Hx Reported Past Psychological History: ADD/ADHD, Anxiety, Depression, PTSD Smoking Status: Current every day smoker, Vaper Past Alcohol Use History: Occasional Past Drug Use History: Marijuana General Exam Limitations: no limitations General appearance: alert Respiratory exam: Present: normal lung sounds bilaterally. Absent: respiratory distress, wheezes, rales, rhonchi, stridor Cardiovascular Exam: Present: regular rate, normal rhythm, normal heart sounds. Absent: systolic murmur, diastolic murmur, rubs, gallop, clicks GI/Abdominal exam: Present: soft, normal bowel sounds. Absent: distended, tenderness, guarding, rebound, rigid Neurological exam: Present: alert Psychiatric exam: Present: normal affect, normal mood Skin exam: Present: warm, dry, intact, normal color. Absent: rash Course Vital Signs 02/15/23 02/15/23 02/15/23 22:00 22:30 22:35 Temperature 98.1 F Pulse Rate 64 Pulse Rate [ 70 Sitting Proposition Player] Pulse Rate [ Standing Proposition Player ] Pulse Rate [ 67 Supine Proposition Player] Respiratory 18 Rate Blood Pressure 115/79 Blood Pressure 117/68 [Left Arm Sitting] Blood Pressure [Left Arm Standing] Blood Pressure 120/80 [Left Arm Supine] O2 Sat by Pulse 100 Oximetry 02/15/23 22:40 Temperature Pulse Rate Pulse Rate [ Sitting Proposition Player] Pulse Rate [ 84 Standing Proposition Player ] Pulse Rate [ Supine Proposition Player] Respiratory Rate Blood Pressure Blood Pressure [Left Arm Sitting] Blood Pressure 109/77 [Left Arm Standing] Blood Pressure [Left Arm Supine] O2 Sat by Pulse Oximetry Medical Decision Making - Medical Decision Making EKG taken at 22:31, interpreted by myself Sinus rhythm with sinus arrhythmia Ventricular rate 74, ND interval 142, QRS duration 77, QTc 385 Was pt. sent in by a medical professional or institution ([facility], [facility], urgent care, hospital, or senior care...) When possible be specific @ -No Did you speak to anyone other than the patient for history (EMS, parent, family, police, friend...)? What history was obtained from this source @ -No Did you review nursing and triage notes (agree or disagree)? Why? @ -I reviewed and agree with nursing and triage notes Were old charts reviewed (outside hosp., previous admission, EMS record, old EKG, old radiological studies, urgent care reports/EKG's, senior care records)? Report findings @ -No old charts were reviewed Differential Diagnosis (chest pain, altered mental status, abdominal pain women, abdominal pain men, vaginal bleeding, weakness, fever, dyspnea, syncope, headache, dizziness, GI bleed, back pain, seizure, CVA, palpatations, mental health)? @ -Differential Abdominal Pain Men: Appendicitis, cholecystitis, diverticulosis, ischemic bowel, pancreatitis, hepatitis, UTI, gastroenteritis, AAA, incarcerated hernia, bowel obstruction, constipation, inflammatory bowel, hepatitis, peptic ulcer disease, splenic infarction, perforated viscus, testicular torsion, this is not meant to be an all-inclusive list EKG interpreted by me (3pts min.). @ -As above X-rays interpreted by me (1pt min.). @ -None done CT interpreted by me (1pt min.). @ -None done U/S interpreted by me (1pt. min.). @ -None done What testing was considered but not performed or refused? (CT, X-rays, U/S, labs)? Why? @ -Considered imaging of the abdomen however patient reports 1 out of 10 pain. No abdominal tenderness on exam What meds were considered but not given or refused? Why? @ -None Did you discuss the management of the patient with other professionals (professionals i.e. , PA, [employer], lab, RT, psych nurse, social studies teacher, monologist, teacher, founder chairman and chief creative officer, case management assistant)? Give summary @ -No Was smoking cessation discussed for >3mins.? @ -No Was critical care preformed (if so, how long)? @ -No Were there social determinants of health that impacted care today? How? (Homelessness, low income, unemployed, alcoholism, drug addiction, transportation, low edu. Level, literacy, decrease access to med. care, [facility]ci, rehab)? @ -No Was there de-escalation of care discussed even if they declined (Discuss DNR or withdrawal of care, Hospice)? DNR status @ -No What co-morbidities impacted this encounter? (DM, HTN, Smoking, COPD, CAD, Cancer, CVA, ARF, Chemo, Hep., AIDS, mental health diagnosis, sleep apnea, morbid obesity)? @ -None Was patient admitted / discharged? Hospital course, mention meds given and route, prescriptions, significant lab abnormalities, going to OR and other pertinent info. @ -Patient presenting with mild abdominal pain, one episode of vomiting, lightheadedness. Patient nontoxic appearing. Orthostatics negative. EKG shows sinus rhythm. The abdomen is soft and nontender. Labs unremarkable. Symptoms resolved after Toradol and Zofran. No further episodes of vomiting. Patient discharged with supportive care. He is to follow up with primary care provider Undiagnosed new problem with uncertain prognosis? @ -No Drug Therapy requiring intensive monitoring for toxicity (Heparin, Nitro, Insulin, Cardizem)? @ -No Were any procedures done? @ -No Diagnosis/symptom? @ -Abdominal pain, nausea and vomiting, lightheadedness Acute, or Chronic, or Acute on Chronic? @ -Acute Uncomplicated (without systemic symptoms) or Complicated (systemic symptoms)? @ -Uncomplicated Side effects of treatment? @ -No Exacerbation, Progression, or Severe Exacerbation? @ -No Poses a threat to life or bodily function? How? (Chest pain, [place], [place], pneumonia, PE, COPD, DKA, ARF, appy, cholecystitis, CVA, Diverticulitis, Homicidal, Suicidal, threat to staff... and all critical care pts) @ -No Dr. Navarro is my attending - Lab Data Result diagrams: 02/15/23 22:26 02/15/23 22:26 Lab Results 02/15/23 02/15/23 02/15/23 Range/Units 22:12 22:26 22:26 WBC 7.5 (3.8-10.6) k/uL RBC 4.75 (4.30-5.90) m/uL Hgb 14.2 (13.0-17.5) gm/dL Hct 42.0 (39.0-53.0) % MCV 88.3 (80.0-100.0) fL MCH 29.8 (25.0-35.0) pg MCHC 33.7 (31.0-37.0) g/dL RDW 12.4 (11.5-15.5) % Plt Count 210 (150-450) k/uL MPV 7.5 Neutrophils % 61 % Lymphocytes % 27 % Monocytes % 6 % Eosinophils % 3 % Basophils % 1 % Neutrophils # 4.6 (1.3-7.7) k/uL Lymphocytes # 2.0 (1.0-4.8) k/uL Monocytes # 0.4 (0-1.0) k/uL Eosinophils # 0.2 (0-0.7) k/uL Basophils # 0.1 (0-0.2) k/uL Sodium 140 (137-145) mmol/L Potassium 3.9 (3.5-5.1) mmol/L Chloride 107 (98-107) mmol/L Carbon Dioxide 26 (22-30) mmol/L Anion Gap 7 mmol/L BUN 12 (9-20) mg/dL Creatinine 0.84 (0.66-1.25) mg/dL Est GFR (CKD-EPI)AfAm >90 (>60 ml/min/1.73 sqM) Est GFR (CKD-EPI)NonAf >90 (>60 ml/min/1.73 sqM) Glucose 107 H (74-99) mg/dL Plasma Lactic Acid Cuco (0.7-2.0) mmol/L Calcium 9.1 (8.4-10.2) mg/dL Total Bilirubin 0.5 (0.2-1.3) mg/dL AST 22 (17-59) U/L ALT 18 (4-49) U/L Alkaline Phosphatase 49 (38-126) U/L Total Protein 6.2 L (6.3-8.2) g/dL Albumin 4.0 (3.5-5.0) g/dL Lipase 110 (23-300) U/L Urine Color Yellow Urine Appearance Cloudy (Clear) Urine pH 6.5 (5.0-8.0) Ur Specific [place] 1.017 (1.001-1.035) Urine Protein Negative (Negative) Urine Glucose (UA) Negative (Negative) Urine Ketones Negative (Negative) Urine Blood Negative (Negative) Urine Nitrite Negative (Negative) Urine Bilirubin Negative (Negative) Urine Urobilinogen <2.0 (<2.0) mg/dL Ur Leukocyte Esterase Negative (Negative) Urine RBC <1 (0-5) /hpf Urine WBC 1 (0-5) /hpf Amorphous Sediment Few H (None) /hpf Hyaline Casts 1 (0-2) /lpf Urine Mucus Rare H (None) /hpf 02/15/23 Range/Units 22:26 WBC (3.8-10.6) k/uL RBC (4.30-5.90) m/uL Hgb (13.0-17.5) gm/dL Hct (39.0-53.0) % MCV (80.0-100.0) fL MCH (25.0-35.0) pg MCHC (31.0-37.0) g/dL RDW (11.5-15.5) % Plt Count (150-450) k/uL MPV Neutrophils % % Lymphocytes % % Monocytes % % Eosinophils % % Basophils % % Neutrophils # (1.3-7.7) k/uL Lymphocytes # (1.0-4.8) k/uL Monocytes # (0-1.0) k/uL Eosinophils # (0-0.7) k/uL Basophils # (0-0.2) k/uL Sodium (137-145) mmol/L Potassium (3.5-5.1) mmol/L Chloride (98-107) mmol/L Carbon Dioxide (22-30) mmol/L Anion Gap mmol/L BUN (9-20) mg/dL Creatinine (0.66-1.25) mg/dL Est GFR (CKD-EPI)AfAm (>60 ml/min/1.73 sqM) Est GFR (CKD-EPI)NonAf (>60 ml/min/1.73 sqM) Glucose (74-99) mg/dL Plasma Lactic Acid Cuco 1.8 (0.7-2.0) mmol/L Calcium (8.4-10.2) mg/dL Total Bilirubin (0.2-1.3) mg/dL AST (17-59) U/L ALT (4-49) U/L Alkaline Phosphatase (38-126) U/L Total Protein (6.3-8.2) g/dL Albumin (3.5-5.0) g/dL Lipase (23-300) U/L Urine Color Urine Appearance (Clear) Urine pH (5.0-8.0) Ur Specific [place] (1.001-1.035) Urine Protein (Negative) Urine Glucose (UA) (Negative) Urine Ketones (Negative) Urine Blood (Negative) Urine Nitrite (Negative) Urine Bilirubin (Negative) Urine Urobilinogen (<2.0) mg/dL Ur Leukocyte Esterase (Negative) Urine RBC (0-5) /hpf Urine WBC (0-5) /hpf Amorphous Sediment (None) /hpf Hyaline Casts (0-2) /lpf Urine Mucus (None) /hpf Disposition Clinical Impression: Nausea and vomiting, Lightheadedness, Abdominal pain Disposition: HOME SELF-CARE Condition: Good Instructions (If sedation given, give patient instructions): Acute Nausea and Vomiting (ED), Lightheadedness (ED) Additional Instructions: Take medication as directed. Please follow-up with your primary care provider in 1-2 days. Return to the emergency department if you experience new, concerning, or worsening symptoms. Prescriptions: Ondansetron Odt [Zofran Odt] 4 mg PO Q8HR PRN #10 tab PRN Reason: Nausea Is patient prescribed a controlled substance at d/c from ED?: No Referrals: None,Stated [Primary Care Provider] - 1-2 days
[2023-02-15 23:41] LABS: Amorphous Sediment,Urine Few /hpf; Appearance,Urine Cloudy (Clear); Bilirubin,Urine Negative (Negative); Blood,Urine Negative (Negative); Color,Urine Yellow; Glucose,Urine (UA) Negative (Negative); Hyaline Casts,Urine 1 /lpf (0-2); Ketones,Urine Negative (Negative); Leukocyte Esterase,Urine Negative (Negative); Mucus,Urine Rare /hpf; Nitrite,Urine Negative (Negative); PH, Urine 6.5 (5.0-8.0); Protein,Urine Negative (Negative); RBC,Urine <1 /hpf (0-5); Specific Gravity,Urine 1.017 (1.001-1.035); Urobilinogen,Urine <2.0 mg/dL (<2.0); WBC,Urine 1 /hpf (0-5)
[2023-02-15 23:59] VITALS: BP 136/82; PULSE 73; TEMP 98.8
== END 2023-02-15 23:58 | disposition home or self-care (01) ==
LOC: EC 21:18
DX: R10.10 Upper abdominal pain, unspecified (principal); R11.2 Nausea with vomiting, unspecified; R42 Dizziness and giddiness; J45.909 Unspecified asthma, uncomplicated; F17.200 Nicotine dependence, unspecified, uncomplicated; F12.90 Cannabis use, unspecified, uncomplicated; Z86.59 Personal history of other mental and behavioral disorders
CPT/HCPCS: 36415; 93005; 80053; 83605; 83690; 85025; 81001; 99284; 96374; 96375; 96361; J2405; J1885

== ENCOUNTER 2023-12-17 08:44 | Emergency (ER) | payer OTHER ==
[2023-12-17 09:02] VITALS: RESP 18
[2023-12-17] MEDS: ACET/COD 300 MG/30 MG STARTER PACK 6 TAB BTL PO STA (09:31)
--- NOTE | 2023-12-17 09:31 | ED ---
ENT HPI - General Chief complaint: Dental/Oral Stated complaint: Oral Pain Time Seen by Provider: 12/17/23 09:03 Source: patient, RN notes reviewed Mode of arrival: ambulatory Limitations: no limitations - History of Present Illness Initial comments: 28-year-old male presents emergency room to complaint of left upper dental pain, swelling. Patient states started 5 days ago he has noted a cracked tooth in the upper region. He states his face feels swollen no fevers or chills no difficulty swallowing states he has some redness and changes around his gumline. - Related Data Previous Rx's Medication Instructions Recorded Melatonin 10 mg PO HS 30 Days tablet 10/27/20 Nicotine 21Mg/24Hr Patch [Habitrol] 1 patch TRANSDERM DAILY 30 Days 10/27/20 patch OLANZapine [ZyPREXA] 15 mg PO HS 30 Days tab 10/27/20 Sertraline [Zoloft] 75 mg PO DAILY 30 Days tab 10/27/20 diphenhydrAMINE [Benadryl] 50 mg PO HS 30 Days cap 10/27/20 Ondansetron Odt [Zofran Odt] 4 mg PO Q8HR PRN #10 tab 02/15/23 Amoxic-Pot Clav 875-125Mg 1 tab PO Q12HR #20 tab 12/17/23 [Augmentin 875-125] Chlorhexidine Gluconate [Peridex] 15 ml PO BID #473 ml 12/17/23 Ibuprofen [Motrin] 600 mg PO Q8HR PRN #20 tab 12/17/23 Allergies Allergy/AdvReac Type Severity Reaction Status Date / Time No Known Allergies Allergy Verified 12/17/23 09:01 Review of Systems ROS Statement: Those systems with pertinent positive or pertinent negative responses have been documented in the HPI. ROS Other: All systems not noted in ROS Statement are negative. Past Medical History Past Medical History: Asthma Additional Past Medical History / Comment(s): BACK PAIN, MIGRAINE, ADD, DEPRESSION, PERSONALITY DISORDER NOS, ANXIETY, History of Any Multi-Drug Resistant Organisms: None Reported Past Surgical History: No Surgical Hx Reported Past Psychological History: ADD/ADHD, Anxiety, Depression, PTSD Smoking Status: Current every day smoker, Vaper Past Alcohol Use History: Occasional Past Drug Use History: Marijuana General Exam Limitations: no limitations General appearance: alert, in no apparent distress Head exam: Present: atraumatic, normocephalic, normal inspection ENT exam: Present: mucous membranes moist. Absent: normal oropharynx (Dental fracture, dental caries left upper with left-sided facial swelling no drainable abscess) Neck exam: Present: normal inspection. Absent: tenderness, meningismus, lymphadenopathy Respiratory exam: Present: normal lung sounds bilaterally. Absent: respiratory distress, wheezes, rales, rhonchi, stridor Cardiovascular Exam: Present: regular rate, normal rhythm, normal heart sounds. Absent: systolic murmur, diastolic murmur, rubs, gallop, clicks Course Vital Signs 12/17/23 08:58 Temperature 99 F Pulse Rate 73 Respiratory 18 Rate Blood Pressure 125/82 O2 Sat by Pulse 99 Oximetry Medical Decision Making - Medical Decision Making Was pt. sent in by a medical professional or institution ([facility], [facility] [employer], urgent care, hospital, or correction...) When possible be specific @ -No Did you speak to anyone other than the patient for history (EMS, parent, family, police, friend...)? What history was obtained from this source @ -No Did you review nursing and triage notes (agree or disagree)? Why? @ -I reviewed and agree with nursing and triage notes Were old charts reviewed (outside hosp., previous admission, EMS record, old EKG, old radiological studies, urgent care reports/EKG's, correction records)? Report findings @ -No old charts were reviewed Differential Diagnosis (chest pain, altered mental status, abdominal pain women, abdominal pain men, vaginal bleeding, weakness, fever, dyspnea, syncope, headache, dizziness, GI bleed, back pain, seizure, CVA, palpatations, mental health, musculoskeletal)? @ -Dental infection dental abscess EKG interpreted by me (3pts min.). @ -None X-rays interpreted by me (1pt min.). @ -None done CT interpreted by me (1pt min.). @ -None done U/S interpreted by me (1pt. min.). @ -None done What testing was considered but not performed or refused? (CT, X-rays, U/S, labs)? Why? @ -None What meds were considered but not given or refused? Why? @ -None Did you discuss the management of the patient with other professionals (professionals i.e. Dr., PA, [employer], lab, RT, psych nurse, transition social worker, healthcare technician, teacher, county records management officer, porter sample case)? Give summary @ -No Was smoking cessation discussed for >3mins.? @ -No Was critical care preformed (if so, how long)? @ -No Were there social determinants of health that impacted care today? How? (Homelessness, low income, unemployed, alcoholism, drug addiction, transportation, low edu. Level, literacy, decrease access to med. care, long term, rehab)? @ -No Was there de-escalation of care discussed even if they declined (Discuss DNR or withdrawal of care, Hospice)? DNR status @ -No What co-morbidities impacted this encounter? (DM, HTN, Smoking, COPD, CAD, Cancer, CVA, ARF, Chemo, Hep., AIDS, mental health diagnosis, sleep apnea, morbid obesity)? @ -None Was patient admitted / discharged? Hospital course, mention meds given and route, prescriptions, significant lab abnormalities, going to OR and other pertinent info. @ -Urged patient has left upper dental fracture with notable facial swelling no drainable abscess started on Augmentin patient advised to follow-up with dentist return parameters were discussed Undiagnosed new problem with uncertain prognosis? @ -No Drug Therapy requiring intensive monitoring for toxicity (Heparin, Nitro, Insulin, Cardizem)? @ -No Were any procedures done? @ -No Diagnosis/symptom? @ -Dental infection, dental fracture Acute, or Chronic, or Acute on Chronic? @ -acute Uncomplicated (without systemic symptoms) or Complicated (systemic symptoms)? @ -Uncomplicated Side effects of treatment? @ -No Exacerbation, Progression, or Severe Exacerbation? @ -No Poses a threat to life or bodily function? How? (Chest pain, [place], [place], pneumonia, PE, COPD, DKA, ARF, appy, cholecystitis, CVA, Diverticulitis, Homicidal, Suicidal, threat to staff... and all critical care pts) @ -No Disposition Clinical Impression: Toothache, Dental infection Disposition: HOME SELF-CARE Condition: Stable Instructions (If sedation given, give patient instructions): Toothache (ED), Dental Abscess (ED) Additional Instructions: Please return to the Emergency Department if symptoms worsen or any other concerns. Prescriptions: Amoxic-Pot Clav 875-125Mg [Augmentin 875-125] 1 tab PO Q12HR #20 tab Ibuprofen [Motrin] 600 mg PO Q8HR PRN #20 tab PRN Reason: Pain Chlorhexidine Gluconate [Peridex] 15 ml PO BID #473 ml Is patient prescribed a controlled substance at d/c from ED?: No Referrals: None,Stated [Primary Care Provider] - 1-2 days Time of Disposition: 09:31
[2023-12-17 09:35] VITALS: BP 130/76; PULSE 82; TEMP 98.4
== END 2023-12-17 09:36 | disposition home or self-care (01) ==
LOC: EC 08:44
DX: K04.7 Periapical abscess without sinus (principal)
CPT/HCPCS: 99282

== ENCOUNTER 2023-12-17 20:17 | Emergency (ER) | payer OTHER ==
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
[2023-12-17 21:48] VITALS: BP 136/86; PULSE 112; RESP 22; TEMP 99
== END 2023-12-17 21:47 | disposition home or self-care (01) ==
LOC: EC 20:17
DX: S00.511A Abrasion of lip, initial encounter (principal); R68.84 Jaw pain; F17.290 Nicotine dependence, other tobacco product, uncomplicated; F12.90 Cannabis use, unspecified, uncomplicated; Y04.0XXA Assault by unarmed brawl or fight, initial encounter
CPT/HCPCS: 99283